=== PATIENT | male | born 1965 | race Caucasian/White ===

== ENCOUNTER 2019-10-20 16:08 | Emergency (ER) | payer SELFPAY ==
[~2019-10-20] VITALS: Ht 180.3 cm; Wt 87.1 kg
[2019-10-20 16:29] VITALS: Ht 180.3 cm; Wt 87.1 kg
[2019-10-20 17:37] LABS: BASOPHIL % 0.4 % (0-2); PLATELET COUNT 177 x10^3mcL (130-400); RED CELL DISTRIBUTION WIDTH 16.8 % (11.5-14.5)
[2019-10-20 19:18] LABS: AMPHETAMINE QUAL UR NONE DETECTED (See below)
[2019-10-20 19:34] VITALS: BP 97/65
== END 2019-10-20 19:34 | disposition left against medical advice (07) ==
LOC: ED 16:08 → EDBD 16:08 → ED 19:34
PROVIDERS: Emergency Medicine
DX: F10.129 Alcohol abuse with intoxication, unspecified (principal)
CPT/HCPCS: 36415; G0480; J7030

== ENCOUNTER 2019-11-08 23:25 | Emergency (ER) | payer OTHER ==
[~2019-11-08] VITALS: Ht 170.2 cm; Wt 74.8 kg
[2019-11-08 23:36] VITALS: Ht 170.2 cm; Wt 74.8 kg
[2019-11-08 23:51] VITALS: BP 128/81
== END 2019-11-08 23:51 | disposition other institution (70) ==
LOC: ED 23:25
DX: Z02.89 Encounter for other administrative examinations (principal)

== ENCOUNTER 2020-09-13 17:41 | Emergency (ER) | payer MEDICAID ==
[~2020-09-13] VITALS: Ht 175.3 cm; Wt 81.6 kg
[~2020-09-13 17:41] MED LIST: THERA-M CAPLET1 EACH PO
[2020-09-13 17:48] VITALS: Ht 175.3 cm; Wt 81.6 kg
[2020-09-13 23:06] LABS: BASOPHIL % 0.4 % (0.2-1.5); PLATELET COUNT 154 x10^3mcL (152-348); RED CELL DISTRIBUTION WIDTH 14.8 % (12.1-16.2)
[2020-09-13 23:07] LABS: rbc morphology (normal/abnorm) NORMAL (NORMAL)
[2020-09-13 23:28] LABS: ALBUMIN 3.5 g/dL (3.4-5.0); ALKALINE PHOSPHATASE 104 U/L (46-116); ALT/SGPT 82 U/L (16-63); AST/SGOT 60 U/L (15-37); BILIRUBIN TOTAL 0.3 mg/dL (0.20-1.00); CALCIUM 8.1 mg/dL (8.5-10.1); CHLORIDE SERUM 101 mmol/L (98-107); CREATININE SERUM 0.7 mg/dL (0.7-1.3); GFR1 > 60 mL/min; GLUCOSE SERUM 84 mg/dL (74-106); POTASSIUM SERUM 3.7 mmol/L (3.5-5.1); SODIUM SERUM 137 mmol/L (136-145); TOTAL PROTEIN, SERUM 6.7 g/dL (6.4-8.2)
[2020-09-13 23:33] LABS: CHOLESTEROL 202 mg/dL (<200)
[2020-09-14 00:37] LABS: AMPHETAMINE QUAL UR NONE DETECTED (See below)
[2020-09-14 05:29] VITALS: BP 113/64
== END 2020-09-14 05:29 | disposition home or self-care (01) ==
LOC: ED 17:41
PROVIDERS: Emergency Medicine
DX: F10.129 Alcohol abuse with intoxication, unspecified (principal)
CPT/HCPCS: G0480; J1630; J3411; J3490; J7030